=== PATIENT | female | born 1940 | race Two or more races ===

== ENCOUNTER 2021-03-18 00:33 | Emergency (ER) | payer OTHER ==
[~2021-03-18] VITALS: Ht 157.5 cm; Wt 54.4 kg
[2021-03-18] MEDS ORDERED: VASOTEC10 MG PO (00:56)
[2021-03-18] MEDS ORDERED: PROTONIX40 M1 PO (00:56)
[2021-03-18] MEDS ORDERED: MOTION SICKNESS25 M1 PO (05:32)
== END 2021-03-18 06:45 | disposition home or self-care (01) ==
LOC: ER 00:33
DX: R42 Dizziness and giddiness (principal)

== ENCOUNTER 2024-03-22 09:03 | Emergency (ER) | payer OTHER ==
[~2024-03-22] VITALS: Ht 149.9 cm; Wt 54.4 kg
[~2024-03-22 09:03] MED LIST: MOTION SICKNESS25 M1 PO; PROTONIX40 M1 PO; VASOTEC10 MG PO
[2024-03-22] MEDS ORDERED: PROTONIX40 M1 (09:15)
[2024-03-22] MEDS ORDERED: MONTELUKAST SODI4 M1 (09:15)
== END 2024-03-22 10:02 | disposition home or self-care (01) ==
LOC: ER 09:04
DX: R53.1 Weakness (principal); Z88.0 Allergy status to penicillin; E11.9 Type 2 diabetes mellitus without complications; I10 Essential (primary) hypertension